=== PATIENT | female | born 1980 | race Caucasian/White ===

== ENCOUNTER → 2019-03-20 10:30 | Outpatient (CLI) | payer OTHER, MEDICAID, SELFPAY ==
--- NOTE | 2019-03-20 | DI.RAD.S_ITS ---
PROCEDURE: XR STERNUM MIN 2V INDICATIONS: Sternum abnormality reported by the patient. TECHNIQUE: 2 views of the sternum acquired. COMPARISON: None. FINDINGS: Bones: No fractures or dislocations. No suspicious bony lesions. Soft tissues: Retrosternal soft tissues appear normal. IMPRESSION: Normal morphology of the sternum, normal marrow space through the sternal structures. If clinically indicated MR scanning could be utilized for more accurate assessment. Dictated by: Mahendra Pelaez M.D. on 03/20/2019 at 12:03 Approved by: Mahendra Pelaez M.D. on 03/20/2019 at 12:04
--- NOTE | 2019-03-20 | DI.RAD.S_ITS ---
PROCEDURE: XR CHEST 2V INDICATIONS: Skull defect TECHNIQUE: 2 views of the chest were acquired. COMPARISON: None. FINDINGS: Surgical changes and devices: None. Lungs and pleura: Lungs are clear. No pleural effusions or pneumothorax. Mediastinum: Mediastinal contours are normal. Heart size is normal. Bones and chest wall: No suspicious bony abnormalities. Soft tissues appear unremarkable. IMPRESSION: No acute disease. Dictated by: Bernard Whitfield M.D. on 03/20/2019 at 12:55 Approved by: Bernard Whitfield M.D. on 03/20/2019 at 12:56
--- NOTE | 2019-03-20 10:41 | DI.CT.S_ITS ---
PROCEDURE: CT HEAD/BRAIN WO CON INDICATIONS: Skull defect TECHNIQUE: Noncontrast 4.5 mm thick angled axial sections acquired from the foramen magnum to the vertex, with coronal and sagittal reformats. For radiation dose reduction, the following was used: automated exposure control, adjustment of mA and/or kV according to patient size. COMPARISON: None. FINDINGS: Image quality: Excellent. CSF spaces: Basal cisterns are patent. No extra-axial fluid collections. Ventricles are normal in size and shape. Brain: No midline shift. No intracranial masses or hemorrhage. Thorne-white matter interface is normal. Skull and face: Calvarium and visualized facial bones are intact, without suspicious lesions. Sinuses: Visualized sinuses and mastoids are clear. IMPRESSION: No lesion found. Depending on the clinical status followup by MR scanning may be warranted without and with contrast for higher resolution imaging through the area of clinical concern. Ideally the study would be performed with MR surface markers in place exactly over the areas of concern. Dictated by: Mahendra Pelaez M.D. on 03/20/2019 at 11:05 Approved by: Mahendra Pelaez M.D. on 03/20/2019 at 11:06
== END ==
PROVIDERS: PCP Family Medicine; Visit Provider Family Medicine
DX: M95.2 Other acquired deformity of head (principal); M89.9 Disorder of bone, unspecified
CPT/HCPCS: 70450; 71046; 71120

== ENCOUNTER → 2020-05-10 17:21 | Outpatient (CLI) | payer OTHER, MEDICAID, SELFPAY ==
--- NOTE | 2020-05-10 | DI.MRI.S_ITS ---
PROCEDURE: MR CHEST WO/W CON INDICATIONS: LOCALIZED SWELLING, MASS AND LUMP TECHNIQUE: Axial 2-D FLASH in- and [id number], axial breath-hold T2 FSE, axial STIR FSE. Optional contrast may be given, followed by axial 2-D FLASH with fat saturation acquired over the lesion of concern. COMPARISON: [facility], CR, XR CHEST 2V, 03/20/2019, 10:43. FINDINGS: Image quality: Excellent. Region of interest: An MR surface marker was placed over the area of maximal clinical concern, assisted by direction from the patient in the exact area of interest. This is located just to the left of midline, superficial to the left-sided sternoclavicular articulation where a slightly greater degree of anterior extension of the articular margin is present on the left when compared to the right.. Bones: Nearby osseous structures demonstrate normal overall marrow signal. IMPRESSION: No inflammation or mass identified in the area of current clinical concern. This is located just to the left of midline immediately superficial to the left sternoclavicular margin, where the osseous margin extends asymmetrically slightly more anteriorly on the left than the right. An underlying inflammatory process is not found such as infection, or inflammatory arthritis. Normal anatomic variant versus slight asymmetric manifestation of age-related minimal degenerative change both could produce this appearance. Dictated by: Mahendra Pelaez M.D. on 05/11/2020 at 12:55 Approved by: Mahendra Pelaez M.D. on 05/11/2020 at 13:00
== END ==
PROVIDERS: PCP Family Medicine; Referring Provider Family Medicine; Visit Provider Family Medicine
DX: R22.2 Localized swelling, mass and lump, trunk (principal)
CPT/HCPCS: 71552; A9579

== ENCOUNTER → 2021-05-01 11:08 | Outpatient (CLI) | payer OTHER, MEDICAID, SELFPAY ==
[2021-05-01 20:44] LABS: HIV 1 & 2 Ab/Ag 4th Gen Combo NEGATIVE (NEGATIVE); Hepatitis B Surface Antigen NEGATIVE s/c (NEGATIVE)
[2021-05-03 00:13] LABS: Hepatitis B Core AB w/Reflex Negative (Negative)
[2021-05-03 07:30] LABS: RPR Screen Non Reactive (Non Reactive)
== END ==
PROVIDERS: Family Medicine; PCP Family Medicine; Visit Provider Family Medicine
DX: Z01.411 Encounter for gynecological examination (general) (routine) with abnormal findings (principal)
CPT/HCPCS: 86592; 86704; 87340; 87389; 87522

== ENCOUNTER → 2021-10-24 12:09 | Outpatient (CLI) | payer OTHER, MEDICAID, SELFPAY | PROVIDERS: PCP Family Medicine; Visit Provider Physician Assistant | DX: N89.8 Other specified noninflammatory disorders of vagina (principal); Z11.3 Encounter for screening for infections with a predominantly sexual mode of transmission | CPT/HCPCS: 87491; 87529; 87591; 87661; 87798; 87801 ==

== ENCOUNTER → 2021-11-10 12:13 | Outpatient (CLI) | payer OTHER, MEDICAID, SELFPAY ==
[2021-11-11 05:13] LABS: RPR Screen Non Reactive (Non Reactive)
[2021-11-13 16:33] LABS: HIV 1 & 2 Ab/Ag 4th Gen Combo NEGATIVE (NEGATIVE)
== END ==
PROVIDERS: PCP Family Medicine; Visit Provider Physician Assistant
DX: Z11.3 Encounter for screening for infections with a predominantly sexual mode of transmission (principal)
CPT/HCPCS: 86592; 87389

== ENCOUNTER → 2023-07-25 16:58 | Outpatient (CLI) | payer OTHER, MEDICAID, SELFPAY | PROVIDERS: PCP Physician Assistant; Visit Provider Physician Assistant Medical | DX: R11.0 Nausea (principal); N39.0 Urinary tract infection, site not specified | CPT/HCPCS: 81002; 81025; 87077; 87086; 87186 ==

== ENCOUNTER → 2024-07-28 09:32 | Outpatient (CLI) | payer OTHER, SELFPAY ==
[2024-07-28 16:29] LABS: Urine N gonorrhoeae NOT DETECTED
[2024-07-28 16:40] LABS: Urine Chlamydia NOT DETECTED
== END ==
PROVIDERS: PCP Physician Assistant; Visit Provider Physician Assistant Medical
DX: Z12.4 Encounter for screening for malignant neoplasm of cervix (principal); Z59.00 Homelessness unspecified; F45.8 Other somatoform disorders; N39.0 Urinary tract infection, site not specified; Z20.2 Contact with and (suspected) exposure to infections with a predominantly sexual mode of transmission
CPT/HCPCS: 87077; 87086; 87186; 87491; 87591